=== PATIENT | female | born 1935 | race Caucasian/White ===

== ENCOUNTER 2016-07-09 11:10 | Emergency (ER) | payer MEDICARE, OTHER | END 2016-07-09 14:32 | disposition home or self-care (01) | LOC: ER1 11:10 | DX: T65.891A Toxic effect of other specified substances, accidental (unintentional), initial encounter (principal); H10.211 Acute toxic conjunctivitis, right eye; Z88.8 Allergy status to other drugs, medicaments and biological substances | CPT/HCPCS: 99283 ==

== ENCOUNTER 2020-10-23 11:41 | Emergency (ER) | payer MEDICARE, OTHER ==
[~2020-10-23 11:41] MED LIST: HYDRALAZINE HCL25 MG PO; OMNICEF 300 MG300 MG PO; TESSALON PERLE100 MG PO; VIBRAMYCIN100 MG PO; ZOFRAN ODT 4 MG4 MG PO
[2020-10-23 12:56] LABS: HEMOGLOBIN 13.7 gm/dl (12.3-15.3); RED BLOOD COUNT 4.92 M/UL (4.00-5.10); WHITE BLOOD COUNT 5.9 K/UL (4.5-11.0)
== END 2020-10-23 19:39 | disposition home or self-care (01) ==
LOC: ER1 11:41
DX: K57.30 Diverticulosis of large intestine without perforation or abscess without bleeding (principal); I10 Essential (primary) hypertension; E11.9 Type 2 diabetes mellitus without complications
CPT/HCPCS: 71045; 80053; 81001; 83605; 83690; 85025; 99284; Q9967

== ENCOUNTER 2020-10-29 02:43 | Emergency (ER) | payer MEDICARE, OTHER ==
[2020-10-29 04:07] LABS: HEMOGLOBIN 15.2 gm/dl (12.3-15.3); RED BLOOD COUNT 5.23 M/UL (4.00-5.10); WHITE BLOOD COUNT 10.4 K/UL (4.5-11.0)
[2020-10-29] MEDS ORDERED: PYRIDIUM200 MG PO (05:14)
[2020-10-29] MEDS ORDERED: BACTRIM DS TAB1 EACH PO (05:14)
== END 2020-10-29 05:23 | disposition home or self-care (01) ==
LOC: ER1 02:43
PROVIDERS: Family Medicine
DX: N30.91 Cystitis, unspecified with hematuria (principal); I10 Essential (primary) hypertension
CPT/HCPCS: 80053; 81001; 83690; 85025; 85610; 87077; 87086; 87186; 99283